=== PATIENT | male | born 1995 | race Caucasian/White ===

== ENCOUNTER 2016-06-16 15:13 | Emergency (ER) | payer OTHER ==
[~2016-06-16] VITALS: Ht 167.6 cm; Wt 80.0 kg
[2016-06-16] MEDS ORDERED: KETOROLAC 30MG/ML VIAL IM ONE (16:45)
[2016-06-16 17:07] VITALS: BP 152/91
== END 2016-06-16 19:08 | disposition home or self-care (01) ==
LOC: ER 16:41
DX: S10.93XA Contusion of unspecified part of neck, initial encounter (principal); Z98.890 Other specified postprocedural states; V43.62XA Car passenger injured in collision with other type car in traffic accident, initial encounter; Y92.488 Other paved roadways as the place of occurrence of the external cause
CPT/HCPCS: 72040; 96372; 99284; J1885; Z7610